=== PATIENT | female | born 1985 | race Caucasian/White ===

== ENCOUNTER 2017-09-20 22:08 | Emergency (ER) | payer OTHER ==
[~2017-09-20] VITALS: Ht 162.6 cm; Wt 73.0 kg
[2017-09-20 22:15] VITALS: Ht 162.6 cm; Wt 73.0 kg
[2017-09-21 00:29] LABS: microscopic required? NO
[2017-09-21 00:38] LABS: UA SPECIFIC GRAVITY 1.015 (1.005-1.035); urine erythrocyte NEGATIVE (NEGATIVE)
[2017-09-21 04:16] VITALS: BP 123/84
== END 2017-09-21 04:16 | disposition home or self-care (01) ==
LOC: ED 22:08
PROVIDERS: Emergency Medicine
DX: B34.9 Viral infection, unspecified (principal)
CPT/HCPCS: 87804; J1100; J1885; J2765